=== PATIENT | female | born 1960 | race Caucasian/White ===

== ENCOUNTER 2016-08-31 15:16 | Emergency (ER) | payer MEDICAID ==
[~2016-08-31] VITALS: Ht 160 cm; Wt 68.2 kg
[~2016-08-31 15:16] MED LIST: OXYC5CAP4 PO
[2016-08-31 15:33] VITALS: BP 120/84
== END 2016-08-31 16:55 | disposition home or self-care (01) ==
LOC: ED 16:40
DX: S60.221A Contusion of right hand, initial encounter (principal); F17.200 Nicotine dependence, unspecified, uncomplicated; W22.01XA Walked into wall, initial encounter; Y93.89 Activity, other specified; Y99.8 Other external cause status; Y92.009 Unspecified place in unspecified non-institutional (private) residence as the place of occurrence of the external cause
CPT/HCPCS: 99284

== ENCOUNTER 2018-03-14 11:20 | Emergency (ER) | payer MEDICAID ==
[~2018-03-14] VITALS: Ht 160 cm; Wt 62.7 kg
[~2018-03-14 11:20] MED LIST changes: +GABA-827 PO; +OXYC5CAP2 PO; -OXYC5CAP4 PO
== END 2018-03-14 13:31 | disposition home or self-care (01) ==
LOC: ED 12:49
DX: S50.01XA Contusion of right elbow, initial encounter (principal); I10 Essential (primary) hypertension; W01.0XXA Fall on same level from slipping, tripping and stumbling without subsequent striking against object, initial encounter; Y93.89 Activity, other specified; Y92.410 Unspecified street and highway as the place of occurrence of the external cause; Y99.8 Other external cause status
CPT/HCPCS: 99283

== ENCOUNTER 2020-05-22 13:32 | Emergency (ER) | payer MEDICAID ==
[~2020-05-22] VITALS: Ht 160 cm; Wt 61.1 kg
--- NOTE | 2020-05-22 13:59 | NUR ---
PT CO GLF TO RIGHT HIP. RIGHT HIP PAIN, NO DEFORMITY NOTICED. PT ABLE TO WALK TO [facility] [place] FROM WHEELCHAIR
--- NOTE | 2020-05-22 15:04 | NUR ---
PT BACK FROM CT
--- NOTE | 2020-05-22 15:30 | NUR ---
SEEN BY KRUPA SNYDER. PT AMBULATED W STEADY GAIT
[2020-05-22 16:04] VITALS: BP 122/78
--- NOTE | 2020-05-22 16:04 | NUR ---
Patient/Caregiver given discharge instructions and they have confirmed that they understand the instructions. Patient ambulatory with steady gait.
== END 2020-05-22 16:06 ==
LOC: ED 16:00
DX: S30.0XXA Contusion of lower back and pelvis, initial encounter (principal); M25.551 Pain in right hip; X58.XXXA Exposure to other specified factors, initial encounter; Y93.89 Activity, other specified; Y92.89 Other specified places as the place of occurrence of the external cause; Y99.8 Other external cause status
CPT/HCPCS: 72131; 72192; 99285

== ENCOUNTER 2020-08-30 12:17 | Emergency (ER) | payer MEDICAID ==
[~2020-08-30] VITALS: Ht 160 cm; Wt 57.5 kg
[2020-08-30 12:44] VITALS: BP 126/72
--- NOTE | 2020-08-30 13:49 | NUR ---
ALL RESULTS ARE BACK AT THIS TIME. CHART UP FOR RECHECK.
== END 2020-08-30 14:22 | disposition home or self-care (01) ==
LOC: ED 14:10
DX: G89.11 Acute pain due to trauma (principal); M25.512 Pain in left shoulder; F17.210 Nicotine dependence, cigarettes, uncomplicated; Z90.710 Acquired absence of both cervix and uterus; G89.29 Other chronic pain; X50.0XXA Overexertion from strenuous movement or load, initial encounter; Y93.89 Activity, other specified; Y92.009 Unspecified place in unspecified non-institutional (private) residence as the place of occurrence of the external cause; Y99.8 Other external cause status
CPT/HCPCS: 99283